=== PATIENT | female | born 1960 | race Caucasian/White ===

== ENCOUNTER 2016-06-01 02:06 | Emergency (ER) | payer BC, OTHER ==
[~2016-06-01] VITALS: Ht 162.6 cm; Wt 59.0 kg
[~2016-06-01 02:06] MED LIST: DOCU-144 PO; ESCI20TA PO; HYDR-3612 PO; LAMO100T PO; LORA1TAB PO; METO10TA92 PO; TAMO10TA20 PO
[2016-06-01] MEDS ORDERED: SOD CHLORIDE 0.9% 1,000 ML IV STA (02:29)
[2016-06-01] MEDS ORDERED: CHARCOAL (AQ) 50 GM/240 ML BTL PO STA (02:29)
[2016-06-01] MEDS ORDERED: FLUMAZENIL 0.5 MG INJ IV STA (02:29)
[2016-06-01 02:32] VITALS: Ht 162.6 cm; Wt 59.0 kg
[2016-06-01 03:13] LABS: ADD SCAN DIFF NO
[2016-06-01 03:27] LABS: ALBUMIN 3.5 g/dl (3.3-4.9); CHLORIDE 104 mmol/L (97-110); SODIUM 142 mmol/L (135-144)
[2016-06-01 03:28] LABS: POTASSIUM 3.4 mmol/L (3.5-5.1)
[2016-06-01 03:29] LABS: CREATININE 0.56 mg/dl (0.44-1.00)
[2016-06-01 03:30] LABS: ALANINE AMINOTRANSFERASE 33 IU/L (13-69); ALBUMIN/GLOBULIN RATIO 1.29; ALKALINE PHOSPHATASE 93 IU/L (42-121); ANION GAP 11 (8-16); ASPARTATE AMINO TRANSFERASE 26 IU/L (15-46); BLOOD UREA NITROGEN 20 mg/dl (7-20); CALCIUM 8.8 mg/dl (8.4-10.2); CARBON DIOXIDE 30 mmol/L (21-31); GLUCOSE 102 mg/dl (70-220); TOTAL PROTEIN 6.2 g/dl (6.1-8.1)
[2016-06-01 03:35] LABS: BASOPHILS % 0.3 % (0.0-2.0); EOSINOPHILS # 0.2 10^3/ul (0.0-0.5); EOSINOPHILS % 3.8 % (0.0-7.0); HEMATOCRIT 35.7 % (37.0-47.0); HEMOGLOBIN 11.4 g/dl (12.0-16.0); LYMPHOCYTES % 32.4 % (15.0-51.0); MEAN CORPUSCULAR HEMOGLOBIN 27.9 pg (29.0-33.0); MEAN CORPUSCULAR HGB CONC 31.9 g/dl (32.0-37.0); MEAN CORPUSCULAR VOLUME 87.3 fl (82.0-101.0); MEAN PLATELET VOLUME 9.4 fl (7.4-10.4); MONOCYTE # 0.7 10^3/ul (0.3-0.9); MONOCYTES % 10.9 % (0.0-11.0); NEUTROPHIL # 3.2 10^3/ul (1.6-7.5); NEUTROPHILS % 52.4 % (39.0-77.0); PLATELET COUNT 300 10^3/UL (140-415); RED BLOOD COUNT 4.09 10^6/ul (4.20-5.40); RED CELL DISTRIBUTION WIDTH 15.7 % (11.5-14.5); WHITE BLOOD COUNT 6.1 10^3/ul (4.8-10.8)
--- NOTE | 2016-06-01 03:56 | PSY ---
Date/Time of Note Date/Time of Note DATE: 06/01/16 TIME: 03:52 Psychiatric Subjective Eval Consent Pt consented to telemedicine: Yes Subjective Evaluation Patient location: emergency Chief Complaint: suicidal and overdose Family History Problems Family History Problems: (1) Family history of respiratory disorder Relations: 33 FATHER, onset: 50's - 60 Allergies: Coded Allergies: Hydromorphone (Verified Allergy, Unknown, 11/08/13) Oxycodone (Verified Allergy, Unknown, 11/08/13) acetaminophen (Verified Allergy, Unknown, 11/08/13) Assessment Additional comments: IDENTIFYING INFORMATION: 55 year old Female patient who is currently at the hospital and for whom psychiatric consultation was requested. SOURCES OF INFORMATION: The patient who appears to be reliable and the medical records; the nursing staff. CHIEF COMPLAINT: "MY has left me". HISTORY OF PRESENT ILLNESS: The patient was interviewed via telemedicine in the presence of and under the supervision of nursing staff of the hospital. The consent to conducting this interview via telemedicine was obtained by the nursing staff at the hospital. RN Breana reports that the patient was brought in after an OD of 4 Xanaxes. Admitted to having . Is not on a hold. The patient reports that she is very stressed over marital problems, and tried to kill herself tonight by taking an overdose of ativan, lamictal and one other medication. Reports that she has been thinking of suicide for several months now. Admits to persistent depression for the past several months, profound anhedonia , frequent crying, insomnia, fatigue. Reports that there are bugs at her home that make nests on the wall, come out and bite her. Denies having AH, paranoia. Last drink was in 1983. The patient denies using alcohol heavily or regularly. The patient denies using any other substances. In terms of past psychiatric history, the patient reports having a history of no past psychiatric hospitalizations. The patient reports having a history of no past suicide attempts. PAST MEDICAL HISTORY: None. CURRENT MEDICATIONS: lamictal, xanax, ativan, seroquel. ALLERGIES TO MEDICATIONS: NKDA. VITAL SIGNS: temperature 97.9, blood pressure 111/63, heart rate 79, respiratory rate 16, pulse ox 100%. LABORATORY TESTS: CBC with Hb 8.4, Hct 26.3, MCV 75.7 CMP with calcium of 8.2, iron 25. UDS/alcohol level pending. SOCIAL HISTORY: lives with boyfriend; not employed; not on disability; 1 adopted child; no firearms at home. REVIEW OF SYSTEMS: Constitutional (e.g., fever, weight loss): negative; Eyes, Ears, Nose, Mouth, Throat: negative; Cardiovascular: negative; Respiratory: negative; Gastrointestinal: negative; Genitourinary: negative; Musculoskeletal: negative; Integumentary (skin and/or breast): negative; Neurological: negative; Psychiatric: as per HPI; Endocrine: negative; Hematologic/Lymphatic: negative; Allergic/Immunologic: negative. MENTAL STATUS EXAMINATION: General Appearance and Behavior: Calm at times, tearful at other times, cooperative with the interview, pleasant with the current interviewer, makes good eye contact, poorly groomed, no abnormal movements noted. Speech: Slow rate, regular rhythm, increased latency, low volume. Flow of thought: sequential, logical, goal-directed. Content of thought: no auditory hallucinations, no visual hallucinations, no delusions, positive for suicidal ideation; no homicidal ideation. Mood: "depressed". Affect: dysthymic, dysphoric, not reactive. Attention: normal based on the interview. Insight: fair. Judgment: poor. Memory: normal based on the interview. Sensorium: alert and oriented to person, June 13, 1917; [place]. ASSESSMENT: The patient's presentation and history are consistent with the diagnosis of major depressive disorder. The patient presents in a major depressive episode in the context of psychosocial stressors following a suicide attempt. [place] I: major depressive disorder. [place] II: Deferred. [place] III: see PMH. [place] IV: social stressors. [place] V: GAF: 10. PLAN: - Medication management: Would hold off on her home medications until the patient's body metabolizes them. Would start haloperidol 5 mg IM PRN severe agitation [id number]. Would start diphenhydramine 50 mg IM PRN severe agitation [id number]. Will defer to the inpatient psychiatry team for other medication changes. - Labs: No other laboratory tests are needed at this time. - Psychotherapy: Provided supportive psychotherapy and psychoeducation. - Disposition: Would recommend involuntary admission to the inpatient psychiatric unit given the severity of the patient's psychiatric condition and the fact that the patient is an imminent danger to self and/or others so long as the patient has been cleared medically for admission to psychiatry. Inpatient psychiatric admission is at this time the least restrictive environment where the patient can receive the psychiatric care that is needed. Would place on suicide precautions. The patient fulfills criteria for being placed on involuntary hold due to being a danger to self. Of note, the patient agrees with the above plan. I called the emergency room physician, Dr. Yee, who is taking care of the patient to discuss about the above plan but the emergency room physician is not available at this time. I left my phone number with the hospital staff requesting a callback so that the emergency room physician can reach me when they become available. JEFFREY TREVINO MD Jun 01, 2016 03:56
[2016-06-01 03:58] LABS: ACETAMINOPHEN < 10.0 ug/ml (10.0-30.0); ETHANOL < 10.0 mg/dl; SALICYLATE < 1.0 mg/dl (5.0-30.0)
[2016-06-01 04:51] LABS: ADD UMIC YES; URINE BILIRUBIN (Dip) NEGATIVE (NEGATIVE); URINE BLOOD (Dip) NEGATIVE (NEGATIVE); URINE COLOR LT. YELLOW (YELLOW); URINE GLUCOSE (Dip) NEGATIVE (NEGATIVE); URINE KETONES (Dip) NEGATIVE (NEGATIVE); URINE LEUKOCYTE ESTERASE (Dip) TRACE (NEGATIVE); URINE NITRITE (Dip) NEGATIVE (NEGATIVE); URINE TOTAL PROTEIN (Dip) NEGATIVE (NEGATIVE); URINE UROBILINOGEN (Dip) 0.2 E.U./dL (0.1-1.0)
--- NOTE | 2016-06-01 05:04 | ERA ---
ER Documentation Chief Complaint Date/Time DATE: 06/01/16 TIME: 05:03 Chief Complaint suicidal and overdose HPI This is a 58-year-old female who comes in who intentionally overdosed for Xanax and to see low problems. Patient is suicidal. She is awake and alert upon arrival to the ER ROS All systems reviewed and are negative except as per history of present illness. Medications Home Meds Active Scripts Metoclopramide* (Reglan*) 10 Mg Tablet, 10 MG PO AC MEALS Y for NAUSEA for 14 Days, TAB Prov:ALHAJI FISHER F. 01/05/14 Docusate Sodium* (Colace*) 100 Mg Cap, 100 MG PO BID Y for CONSTIPATION for 30 Days Prov:ALHAJI FISHER F. 01/05/14 Hydrocodone Bit-Acetaminophen* (Lima*) 10-325 Tablet, 1 TAB PO Q4H Y for PAIN, #30 TAB Prov:FIDEL ERWIN 11/14/13 Reported Medications Lorazepam* (Lorazepam*) 1 Mg Tablet, 1 MG PO BID, TAB 12/29/13 Lamotrigine* (Lamotrigine*) 100 Mg Tablet, 100 MG PO DAILY, TAB 12/29/13 Escitalopram Oxalate* (Lexapro*) 20 Mg Tablet, 20 MG PO DAILY, TAB 11/08/13 Tamoxifen Citrate* (Tamoxifen Citrate*) 10 Mg Tab, 10 MG PO DAILY, TAB 11/08/13 Allergies Allergies: Coded Allergies: Hydromorphone (Verified Allergy, Unknown, 11/08/13) Oxycodone (Verified Allergy, Unknown, 11/08/13) acetaminophen (Verified Allergy, Unknown, 11/08/13) PMhx/Soc Medical and Surgical Hx: pt denies Medical Hx, pt denies Surgical Hx History of Surgery: Yes (BREAST IMPLANTS/gastric bypass/tummy tuck) Anesthesia Reaction: No Hx Neurological Disorder: No Hx Respiratory Disorders: No Hx Cardiac Disorders: No Hx Psychiatric Problems: Yes (depression and anxiety) Hx Miscellaneous Medical Probl: Yes (anemia) Hx Alcohol Use: Yes Hx Substance Use: No Hx Tobacco Use: No Smoking Status: Never smoker Physical Exam Vitals Vital Signs Date Time Temp Pulse Resp B/P Pulse Ox O2 Delivery O2 Flow Rate FiO2 06/01/16 02:32 97.9 79 16 111/63 100 Physical Exam Const: [] Head: Atraumatic Eyes: Normal Conjunctiva ENT: Normal External Ears, Nose and Mouth. Neck: Full range of motion..~ No meningismus. Resp: Clear to auscultation bilaterally Cardio: Regular rate and rhythm, no murmurs Abd: Soft, non tender, non distended. Normal bowel sounds Skin: No petechiae or rashes Back: No midline or flank tenderness Ext: No cyanosis, or edema Neur: Awake and alert Psych: Normal Mood and Affect Result Diagram: 06/01/16 0245 06/01/16 0245 Results 24 hrs Laboratory Tests Test 06/01/16 02:45 06/01/16 04:05 Acetaminophen Level < 10.0ug/ml Alanine Aminotransferase (ALT/SGPT) 33IU/L Albumin 3.5g/dl Albumin/Globulin Ratio 1.29 Alkaline Phosphatase 93IU/L Anion Gap 11 Aspartate Amino Transf (AST/SGOT) 26IU/L Basophils # 0.010^3/ul Basophils % 0.3% Blood Urea Nitrogen 20mg/dl Calcium Level 8.8mg/dl Carbon Dioxide Level 30mmol/L Chloride Level 104mmol/L Creatinine 0.56mg/dl Direct Bilirubin 0.00mg/dl Eosinophils # 0.210^3/ul Eosinophils % 3.8% Ethyl Alcohol Level < 10.0mg/dl Globulin 2.70g/dl Glucose Level 102mg/dl Hematocrit 35.7% Hemoglobin 11.4g/dl Indirect Bilirubin 0.0mg/dl Lymphocytes # 2.010^3/ul Lymphocytes % 32.4% Mean Corpuscular Hemoglobin 27.9pg Mean Corpuscular Hemoglobin Concent 31.9g/dl Mean Corpuscular Volume 87.3fl Mean Platelet Volume 9.4fl Monocytes # 0.710^3/ul Monocytes % 10.9% Neutrophils # 3.210^3/ul Neutrophils % 52.4% Nucleated Red Blood Cells # 0.010^3/ul Nucleated Red Blood Cells % 0.0/100WBC Platelet Count 04786^3/UL Potassium Level 3.4mmol/L Red Blood Count 4.0910^6/ul Red Cell Distribution Width 15.7% Salicylates Level < 1.0mg/dl Sodium Level 142mmol/L Total Bilirubin 0.0mg/dl Total Protein 6.2g/dl White Blood Count 6.110^3/ul Urine Bilirubin NEGATIVE Urine Clarity CLEAR Urine Color LT. YELLOW Urine Glucose NEGATIVE% Urine Hemoglobin NEGATIVE Urine Ketones NEGATIVE Urine Leukocyte Esterase TRACE Urine Microscopic RBC Pending Urine Microscopic WBC Pending Urine Nitrite NEGATIVE Urine Specific [place] 1.015 Urine Total Protein NEGATIVE Urine Urobilinogen 0.2 E.U./dL Urine pH 6.0 Current Medications Medications (Trade) Dose Ordered Sig/Janelle Route PRN Reason Start Time Stop Time Status Last Admin Dose Admin Sodium Chloride (NS) 1,000 ml @ 1,000 mls/hr Q1H STAT IV 06/01/16 02:29 06/01/16 03:28 DC 06/01/16 03:14 Charcoal (Actidose (Aqua)) 50 gm ONCE STAT PO 06/01/16 02:29 06/01/16 02:32 DC 06/01/16 03:14 Flumazenil (Romazicon) 0.2 mg ONCE STAT IV 06/01/16 02:29 06/01/16 02:32 DC 06/01/16 03:14 Procedures/MDM Patient's behavioral symptoms have stabilized while in the department. Patient is medically cleared and appropriate for psychiatric evaluation and work up. No e/o neurologic, toxic, infectious, or metabolic cause. Patient underwent a B7-year-old after being placed on telemetry psychiatry 5150 Observation Note: Time: 4 hours Family Hx: No Hypertension Evaluation: Multiple exams showed improving symptoms and no evidence of [ XOXOXO] Departure Diagnosis: Primary Impression: Suicide attempt by substance overdose Qualified Code: T65.92XA - Suicide attempt by substance overdose, initial encounter Additional Impression: Intentional drug overdose Qualified Code: T50.902A - Intentional drug overdose, initial encounter Condition: Serious ROHIT GOYAL Jun 01, 2016 05:04
[2016-06-01 05:21] LABS: BARBITURATES NEGATIVE (NEGATIVE); BENZODIAZEPINES POSITIVE (NEGATIVE); CANNABINOIDS NEGATIVE (NEGATIVE); COCAINE NEGATIVE (NEGATIVE); OPIATES NEGATIVE (NEGATIVE); SQUAMOUS EPITHELIAL CELL,UR MODERATE; URINE RBCS 0-2 /HPF (0)
[2016-06-01 05:22] LABS: BACTERIA,URINE OCCASIONAL
--- NOTE | 2016-06-01 14:46 | QN ---
Documentation Comment Observation Note: Time: 4 hours Family Hx: Negative for diabetes Evaluation: Multiple exams showed improving symptoms and no evidence of clinical decompensation. DANIEL TORRES MD Jun 01, 2016 14:46
[2016-06-01] MEDS ORDERED: LAMO200T PO (15:46)
[2016-06-01] MEDS ORDERED: ALPR1TAB2 PO (15:46)
[2016-06-01] MEDS ORDERED: LORA1TAB PO (15:47)
[2016-06-01] MEDS ORDERED: LORAZEPAM 1 MG TAB PO ONE (20:30)
--- NOTE | 2016-06-01 22:23 | QN ---
Documentation Comment Observation Note: Time: For hours Family Hx: No Hypertension Evaluation: Patient continues to be suicidal. Pending BHU placement. ROHIT GOYAL Jun 01, 2016 22:23
[2016-06-01 22:30] VITALS: BP 103/58; PULSE 90; RESP 16; TEMP 99.2
== END 2016-06-02 ==
LOC: E/R 02:06
DX: T42.4X2A Poisoning by benzodiazepines, intentional self-harm, initial encounter (principal)
CPT/HCPCS: 36415; 80053; 80306; 80307; 81001; 85025; 96374; 99285; J7030; 81003